=== PATIENT | male | born 1955 | race Caucasian/White ===

== ENCOUNTER 2016-10-30 21:18 | Emergency (ER) | payer OTHER ==
[~2016-10-30] VITALS: Ht 185.4 cm; Wt 107.4 kg
[2016-10-30 23:03] LABS: EOSINOPHIL COUNT 0.1 K/uL (0-0.3); HEMATOCRIT 31.2 % (38.0-50.0); IMMATURE GRANULOCYTE (%) 0.3 % (0.0-0.7); INSTRUMENT ABS NEUTROPHIL CT 4.9 K/uL; LYMPHOCYTE COUNT 1.1 K/uL (1.0-2.8); MCHC 32.4 G/DL (30.0-36.0); MCV 83.4 FL (86-99); MEAN PLAT.VOLUME 9.6 uM^3 (9.0-12.4); MONOCYTE COUNT 0.7 K/uL (0-0.8); NEUTROPHIL (%) 72.8 % (45-76); NEUTROPHIL COUNT 4.9 K/uL (1.8-6.4); PLATELET COUNT 249 K/uL (156-360); RBC DIS.WIDTH-CV 12.9 % (11.8-14.6); RBC DIS.WIDTH-SD 39.3 % (39-53); RED BLOOD COUNT 3.74 M/uL (4.00-5.50); WHITE BLOOD COUNT 6.8 K/uL (4.1-10.2)
[2016-10-30 23:10] LABS: CHLORIDE 103 mEq/L (99-109); POTASSIUM 4.7 mEq/L (3.7-5.4); SODIUM 137 mEq/L (136-147)
[2016-10-30 23:12] LABS: GLUCOSE 139 mg/dL (70-99)
[2016-10-30 23:13] LABS: ANION GAP 8 MEQ/L (2-14)
[2016-10-30 23:14] LABS: TOTAL BILIRUBIN 0.3 mg/dL (0.0-1.0)
[2016-10-30 23:15] LABS: ALKALINE PHOSPHATASE 110 IU/L (3-129)
[2016-10-30 23:16] LABS: GFR ESTIMATE (CALCULATED) 55 mL/min/
[2016-10-30 23:17] LABS: UREA NITROGEN (BUN) 25 mg/dL (9-23)
[2016-10-30 23:22] LABS: ADD MIUA? YES; BILIRUBIN NEGATIVE; BLOOD NEGATIVE; COLOR STRAW ((YELLOW)); GLUCOSE (STRIP) NEGATIVE; KETONES NEGATIVE; LEUKOCYTES NEGATIVE; NITRITE NEGATIVE; PROTEIN (STRIP) 100; UROBILINOGEN 0.2 MG/DL (0.2-1.0)
[2016-10-30 23:24] LABS: BACTERIA NONE SEEN /HPF; EPITHELIAL CELLS NONE SEEN /HPF; MUCUS NONE SEEN /LPF; RED BLOOD CELLS 0-5 /HPF (0-5); WHITE BLOOD CELLS 0-5 /HPF (0-5)
[2016-10-30] MEDS ORDERED: BENTYL20 MG PO (23:39)
[2016-10-30] MEDS ORDERED: GAS-X125 MG PO (23:39)
[2016-10-30 23:47] VITALS: BP 168/63
== END 2016-10-30 23:47 | disposition home or self-care (01) ==
LOC: EME 21:18
PROVIDERS: Physician Assistant
DX: R10.9 Unspecified abdominal pain (principal); E11.9 Type 2 diabetes mellitus without complications; E78.5 Hyperlipidemia, unspecified; I10 Essential (primary) hypertension
CPT/HCPCS: 74020; 80053; 81003; 85025; 99281; 99283